=== PATIENT | female | born 1970 | race Caucasian/White ===

== ENCOUNTER 2019-01-24 07:00 | Outpatient (CLI) | payer OTHER, SELFPAY ==
--- NOTE | 2019-01-24 10:39 | DI.MAMMO_ITS ---
SYMPTOMS/DIAGNOSIS: SCREENING, PREVENTATIVE CARE, Z00.00 MAMMOGRAM: Mammograms were interpreted according to the usual protocol including computer analysis with CAD system, tomosynthesis and C view imaging. Comparison is made with 2012. The breasts are composed of heterogeneously dense fibroglandular tissue, breast Category C. No suspicious masses or suspicious microcalcifications are seen. There has been no significant change. IMPRESSION: Category I, negative mammogram. Yearly screening mammography is recommended. [facility] ASSESSMENT OF FINDINGS: Negative. Category 1. Patient will receive a letter notifying them of these results. Bi-RADS category C. The breasts are heterogeneously dense, which may obscure small masses.
== END 2019-01-24 07:20 ==
PROVIDERS: PCP Family Medicine; Visit Provider Family Medicine
DX: Z00.00 Encounter for general adult medical examination without abnormal findings (principal); Z12.31 Encounter for screening mammogram for malignant neoplasm of breast
CPT/HCPCS: 77063; 77067

== ENCOUNTER 2019-01-27 15:44 | Outpatient (CLI) | payer OTHER, SELFPAY ==
[2019-01-27 17:03] LABS: TSH (W/Ref FT4) 5.06 uIU/mL (0.358-3.74)
== END 2019-01-27 16:04 ==
PROVIDERS: PCP Family Medicine; Visit Provider Family Medicine
DX: E03.9 Hypothyroidism, unspecified (principal)
CPT/HCPCS: 36415; 84439; 84443

== ENCOUNTER 2019-01-31 12:30 | Outpatient (CLI) | payer OTHER, SELFPAY ==
[2019-01-31 21:12] LABS: Estradiol 47 pg/ml
[2019-02-03 10:18] LABS: FSH 5.1 mIU/ml; LH 1.7 mIU/ml; Prolactin 5.6 ng/ml
[2019-02-04 15:20] LABS: Testosterone, Free 0.21 ng/dL (0.06-0.95); Testosterone, Total 19 ng/dL (8-60)
== END 2019-01-31 12:50 ==
PROVIDERS: PCP Family Medicine; Visit Provider Obstetrics & Gynecology
DX: N92.4 Excessive bleeding in the premenopausal period (principal); N92.6 Irregular menstruation, unspecified; N92.0 Excessive and frequent menstruation with regular cycle
CPT/HCPCS: 36415; 80048; 84402; 84403; 82670; 83001; 83002; 84146; 84443

== ENCOUNTER 2019-01-31 15:01 | Outpatient (REF) | payer OTHER, SELFPAY ==
--- NOTE | 2019-01-31 12:20 | PAPFT_PTH ---
PATIENT: Porsha Spencer LOC: [facility] U#:[id number] AGE/SX: 48/F ROOM: RE01/31/[address]: Amber Moraes MD : 1970 BED: DIS: 01/31/2019 SPEC #: [id number] RECD: 01/31/19 17:50 STATUS: CHUYITA RODRÍGUEZ #: [id number] ENRIQUE: 01/31/19 12:[address]: Amber Moraes DEPT: [facility], [facility] Cytology RECD BY: Yissel Albert ENTERED: 01/31/19 17:50 SP TYPE: PAPFT OTHR DR: Gilda Gibson Tissues: 1 - CX/ENDOCX FOR PAP SMEARS Procedures: PAP THIN PREP/UVM Screening HPV DNA PROBE Comments: [id number]
== END 2019-01-31 15:21 ==
LOC: LBN 15:01
PROVIDERS: PCP Family Medicine; Visit Provider Obstetrics & Gynecology
DX: Z12.4 Encounter for screening for malignant neoplasm of cervix (principal); Z11.51 Encounter for screening for human papillomavirus (HPV)
CPT/HCPCS: 88142; 87624

== ENCOUNTER 2019-04-03 01:22 | Outpatient (CLI) | payer OTHER, SELFPAY ==
--- NOTE | 2019-04-03 07:52 | DI.MRI_ITS ---
SYMPTOM/DIAGNOSIS: LT ARM PAIN, PARESTHESIA, NECK PAIN, RT ARM NUMBNESS, R20.2, M54.2 CERVICAL SPINE MRI: MRI examination of the cervical spine was performed according to the usual protocol. There appear to be a few small fatty rests of cervical and upper thoracic vertebrae. No other bony signal abnormality is seen. There is mild prominence of the disc osteophyte complex at multiple levels throughout the cervical region. No focal disc herniation is seen. Central spinal canal and neural foramina appear well maintained. Spinal cord is of normal diameter and shows normal signal throughout. CONCLUSION: Negative cervical spine MRI.
== END 2019-04-03 01:42 ==
PROVIDERS: PCP Family Medicine; Visit Provider Nurse Practitioner Adult Health
DX: M54.2 Cervicalgia (principal); R20.2 Paresthesia of skin; M79.602 Pain in left arm
CPT/HCPCS: 72141

== ENCOUNTER 2019-04-16 11:40 | Outpatient (CLI) | payer OTHER, SELFPAY ==
[2019-04-16 12:57] LABS: Anion Gap 10.9 mmol/L (3-11); BUN 18 mg/dL (7-18); CO2 26.1 mmol/L (21.0-32.0); CREATININE 0.81 mg/dL (0.55-1.02); Calcium 8.8 mg/dL (8.5-10.1); Chloride 102 mmol/L (98-107); Glucose 92 mg/dL (70-100); Potassium 3.9 mmol/L (3.5-5.1); Sodium 139 mmol/L (136-145); TSH (W/Ref FT4) 3.26 uIU/mL (0.358-3.74)
== END 2019-04-16 12:00 ==
PROVIDERS: PCP Family Medicine; Visit Provider Family Medicine
DX: E03.9 Hypothyroidism, unspecified (principal); R03.0 Elevated blood-pressure reading, without diagnosis of hypertension
CPT/HCPCS: 36415; 80048; 84443

== ENCOUNTER 2019-12-22 14:37 | Outpatient (CLI) | payer OTHER, SELFPAY ==
[2019-12-22 17:29] LABS: TSH (W/Ref FT4) 3.83 uIU/mL (0.36-3.74)
[2019-12-22 18:05] LABS: FREE T4 0.82 ng/dL (0.76-1.46)
== END 2019-12-22 14:57 ==
PROVIDERS: PCP Family Medicine; Visit Provider Family Medicine
DX: E03.9 Hypothyroidism, unspecified (principal)
CPT/HCPCS: 36415; 84439; 84443

== ENCOUNTER 2020-06-25 13:17 | Outpatient (REF) | payer OTHER, SELFPAY ==
[2020-06-25 20:02] LABS: FREE T4 0.81 ng/dL (0.76-1.46); TSH 0.07 uIU/mL (0.36-3.74)
[2020-06-27 17:34] LABS: T3, Total 130 ng/dL (97-169)
== END 2020-06-25 13:37 ==
LOC: NCHCN 13:17
PROVIDERS: PCP Family Medicine; Visit Provider Family Medicine
DX: E03.9 Hypothyroidism, unspecified (principal)
CPT/HCPCS: 84439; 84443; 84480

== ENCOUNTER 2021-03-02 16:02 | Outpatient (REF) | payer OTHER, SELFPAY ==
[2021-03-02 20:15] LABS: FREE T4 1.02 ng/dL (0.76-1.46)
== END 2021-03-02 16:03 | disposition home or self-care (01) ==
LOC: NCHCN 16:02
PROVIDERS: PCP Family Medicine; Visit Provider Family Medicine
DX: E03.9 Hypothyroidism, unspecified (principal)
CPT/HCPCS: 84439

== ENCOUNTER 2021-03-04 03:36 | Outpatient (CLI) | payer OTHER, SELFPAY ==
--- NOTE | 2021-03-04 | DI.MAMMO_ITS ---
EXAM: MG MAMMO SCREENING CLINICAL HISTORY: SCREENING, Z12.39 TECHNIQUE: Bilateral full field digital CC and MLO mammographic images were obtained with 3D tomosyn thesis and utilizing computer aided detection (CAD). COMPARISON: Available for comparison. FINDINGS: Masses/Architectural Distortion: None seen. Microcalcifications: No suspicious pleomorphic-type are seen. Skin Thickening/Nipple Retraction: None. IMPRESSION: 1. No significant interval change with no specific features of malignancy noted. 2. Unless there is more urgent need, screening mammography is recommended, as per [place] guidelines. BI-RADS Category 1 - Negative Breast Density - Category C - Heterogeneously dense Breast density category C or D implies that the patient has dense breast tissue. Dense breast tissue is very common and is not abnormal but dense breast tissue can make it harder to find cancer on a ma mmogram. Also, dense breast tissue may increase their breast cancer risk. This information about the result of the mammogram report was provided to the patient to raise their awareness. Use this report when you speak with the patient about their risks for breast cancer, which includes their family hist ory. At that time, you may recommend for more screening tests (Ultrasound or MRI) as they might be us eful based on their risk. A negative radiographic report should not delay biopsy if a dominant or clinically suspicious mass is present. Up to ten percent of cancers are not identified on mammography. A negative report may reinforce clinical impression. Adenosis and dense breasts may obscure an underlying neoplasm. False positive reports average 6 to 10%. Patient will receive a letter notifying them of these results.
== END 2021-03-04 03:56 ==
PROVIDERS: PCP Family Medicine; Visit Provider Family Medicine
DX: Z12.31 Encounter for screening mammogram for malignant neoplasm of breast (principal)
CPT/HCPCS: 77063; 77067

== ENCOUNTER 2021-08-04 13:51 | Outpatient (CLI) | payer OTHER, SELFPAY ==
--- NOTE | 2021-08-04 | DI.RAD_ITS ---
Exam(s) XR FINGER RT INDEX EXAM: XR FINGER RT INDEX CLINICAL HISTORY: FINGER PAIN M79.646. TECHNIQUE: 2D digital imaging was performed. COMPARISON: No exams were available for comparison FINDINGS: BONES: No acute fracture is present. No bony destructive lesion is seen. JOINTS: No dislocation present. SOFT TISSUE: Minimal soft tissue swelling PIP joint IMPRESSION: No evidence of acute fracture, dislocation, or subluxation. DATA REPOSITORY: RADIATION DOSE DELIVERED:
--- NOTE | 2021-08-04 | DI.RAD_ITS ---
Exam(s) XR FINGER RT MIDDLE EXAM: XR FINGER RT MIDDLE CLINICAL HISTORY: FINGER PAIN M79.646. TECHNIQUE: 2D digital imaging was performed. COMPARISON: No exams were available for comparison FINDINGS: BONES: No acute fracture is present. No bony destructive lesion is seen. JOINTS: No dislocation present. SOFT TISSUE: Normal. IMPRESSION: No evidence of acute fracture, dislocation, or subluxation. DATA REPOSITORY: RADIATION DOSE DELIVERED:
--- NOTE | 2021-08-04 17:55 | DI.VRAD_ITS ---
PROCEDURE INFORMATION: Exam: XR Right Finger(s) Exam date and time: 08/04/2021 4:45 PM Age: 51 years old Clinical indication: Injury or trauma; Fall; Crushing; Right; Index finger and middle finger; Injury date: 8 weeks ago; Injury details: Fell paddleboarding and crushed fingers between paddle and board; Patient HX: Finger pain TECHNIQUE: Imaging protocol: XR Right fingers. Views: Minimum 2 views. COMPARISON: No relevant prior studies available. FINDINGS: Bones/joints: Normal. Soft tissues: Minimal soft tissue swelling ventral aspect PIP joint. IMPRESSION: Minimal soft tissue swelling ventral aspect of the PIP joint. Dictated and Authenticated by: Delores Bob MD. Ordering:KARAN Pierre MD
--- NOTE | 2021-08-04 17:56 | DI.VRAD_ITS ---
PROCEDURE INFORMATION: Exam: XR Right Finger(s) Exam date and time: 08/04/2021 4:45 PM Age: 51 years old Clinical indication: Injury or trauma; Fall; Blunt trauma (contusions or hematomas); Right; Index finger and middle finger; Injury date: 8 weeks ago; Injury details: Fell paddleboarding and crushed fingers between paddle and board; Patient HX: Finger pain TECHNIQUE: Imaging protocol: XR Right fingers. Views: Minimum 2 views. COMPARISON: CR XR FINGER RT INDEX 08/04/2021 5:07 PM FINDINGS: Bones/joints: Normal. Soft tissues: Normal. IMPRESSION: Unremarkable exam. Dictated and Authenticated by: Delores Bob MD. Ordering:KARAN Pierre MD
== END 2021-08-04 14:11 ==
PROVIDERS: PCP Family Medicine; Visit Provider Physician Assistant Medical
DX: M79.644 Pain in right finger(s) (principal)
CPT/HCPCS: 73140

== ENCOUNTER 2021-09-20 18:44 | Outpatient (CLI) | payer OTHER, SELFPAY ==
--- NOTE | 2021-09-20 15:00 | DI.RAD_ITS ---
Exam(s) XR WRIST LT COMPLETE EXAM: XR WRIST LT COMPLETE CLINICAL HISTORY: LT THUMB RADIAL MCP PAIN X 4 MONTHS. TECHNIQUE: 2D digital imaging was performed. COMPARISON: No exams were available for comparison FINDINGS: BONES: No acute fracture is present. No bony destructive lesion is seen. JOINTS: The carpal bones are normally aligned. No significant degenerative changes. SOFT TISSUE: Normal. No soft tissue calcifications. IMPRESSION: Unremarkable radiographs of the left wrist. DATA REPOSITORY: RADIATION DOSE DELIVERED:
--- NOTE | 2021-09-20 15:00 | DI.RAD_ITS ---
Exam(s) XR FINGER RT INDEX EXAM: XR FINGER RT INDEX CLINICAL HISTORY: RT INDEX FINGER SPRAIN. TECHNIQUE: 2D digital imaging was performed. COMPARISON: CR,XR XR FINGER RT MIDDLE from 08/04/2021 FINDINGS: BONES: No acute fracture is present. No bony destructive lesion is seen. JOINTS: No dislocation present. SOFT TISSUE: Normal. IMPRESSION: No evidence of acute fracture, dislocation, or subluxation. DATA REPOSITORY: RADIATION DOSE DELIVERED:
== END 2021-09-20 19:04 ==
PROVIDERS: PCP Family Medicine; Visit Provider Chiropractor Orthopedic
DX: M79.645 Pain in left finger(s) (principal); M79.644 Pain in right finger(s); M25.532 Pain in left wrist; M25.542 Pain in joints of left hand
CPT/HCPCS: 73110; 73140

== ENCOUNTER 2022-04-10 19:59 | Outpatient (REF) | payer OTHER, SELFPAY ==
[2022-04-10 18:42] LABS: Calculated LDL 92 mg/dL (<100); Cholesterol 167 mg/dL (<200); HDL Cholesterol 68 mg/dL (40-60); TSH 0.01 uIU/mL (0.36-3.74); Triglyceride 35 mg/dL (<150)
[2022-04-10 19:14] LABS: FREE T4 1.04 ng/dL (0.76-1.46)
[2022-04-12 09:47] LABS: Hepatitis C Ab w Rflx HCV PCR Negative (Negative)
[2022-04-12 10:03] LABS: HIV-1/2 Ag & Ab Screen Negative (Negative)
== END 2022-04-10 20:00 | disposition home or self-care (01) ==
LOC: NCHCN 19:59
PROVIDERS: PCP Family Medicine; Visit Provider Family Medicine
DX: R19.7 Diarrhea, unspecified (principal); Z13.220 Encounter for screening for lipoid disorders; Z11.4 Encounter for screening for human immunodeficiency virus [HIV]; Z11.59 Encounter for screening for other viral diseases
CPT/HCPCS: 80061; 86803; 87389; 84439; 84443

== ENCOUNTER 2023-02-06 02:39 | Outpatient (CLI) | payer OTHER, SELFPAY ==
[2023-02-06 13:35] LABS: HCT 41.4 % (36.0-46.0); HGB 13.6 g/dL (11.2-15.7); MCH 28.2 pg (27.0-33.0); MCHC 32.9 % (32.0-36.0); MCV 86 fL (80-95); MPV 7.9 fL (8.0-11.0); Platelet Count 322 10^3/uL (130-400); RBC 4.82 10^6/uL (3.93-5.22); RDW 12.5 % (11.7-14.6); RDW-SD 38.9 fL; WBC 5.82 10^3/uL (4.4-10.8)
[2023-02-06 14:21] LABS: ALT 26 U/L (14-59); AST 19 U/L (15-37); Albumin 3.8 g/dL (3.4-5.0); Alkaline Phosphatase 69 U/L (46-116); Anion Gap 6.9 mmol/L (3-11); BUN 13 mg/dL (7-18); Bilirubin, Total 0.8 mg/dL (0.2-1.0); CO2 30.1 mmol/L (21.0-32.0); CREATININE 0.7 mg/dL (0.55-1.02); Calcium 9.1 mg/dL (8.5-10.1); Chloride 105 mmol/L (98-107); Glucose 103 mg/dL (74-106); Potassium 3.7 mmol/L (3.5-5.1); Sodium 142 mmol/L (136-145); Total Protein 7.1 g/dL (6.4-8.2); Vitamin B12 455 pg/mL (193-986)
[2023-02-06 14:22] LABS: Folate > 20.0 ng/mL (8.6-20.0); TSH (W/Ref FT4) < 0.01 uIU/mL (0.36-3.74)
[2023-02-06 14:41] LABS: C-Reactive Protein 0.09 mg/dL (0.0-0.3); FREE T4 1.13 ng/dL (0.76-1.46); NT-proBNP 27 pg/mL (<300)
== END 2023-02-06 02:40 | disposition home or self-care (01) ==
PROVIDERS: PCP Family Medicine; Visit Provider Family Medicine
DX: R20.2 Paresthesia of skin (principal); R60.0 Localized edema
CPT/HCPCS: 36415; 80053; 85027; 82607; 82746; 83880; 84439; 84443; 86140

== ENCOUNTER 2023-03-20 09:33 | Outpatient (CLI) | payer OTHER, SELFPAY | END 2023-03-20 09:34 | disposition home or self-care (01) | PROVIDERS: PCP Family Medicine; Visit Provider Family Medicine | DX: R00.2 Palpitations (principal) | CPT/HCPCS: 93246 ==

== ENCOUNTER 2023-03-26 01:11 | Outpatient (CLI) | payer OTHER, SELFPAY ==
--- NOTE | 2023-03-26 | DI.US_ITS ---
APPROVED REPORT EXAM: Comprehensive 2D, Doppler, and color-flow Echocardiogram Patient Location: Out-Patient Technology Auditor: Hina Rubio RDCS (AE) Indications: Exertional chest pain, Dyspnea on exertion Other Information Study Quality: Good Conclusion Normal left ventricular wall thickness and chamber size. Ejection fraction is 60 to 65%. Wall motio n is normal Normal right ventricular size and systolic function Both atria are normal in size There is no structural or hemodynamically significant valvular disease Estimated right ventricular systolic pressure is 16 mmHg Wall motion Left Ventricle The left ventricle is normal size. The left ventricular systolic function is normal. The left ventric ular ejection fraction is within the normal range. There is normal left ventricular wall thickness. T here is normal LV segmental wall motion. There is no ventricular septal defect visualized. LVEF is 60 -65%. Right Ventricle The right ventricle is normal size. The right ventricular systolic function is normal. The RVSP is 15 .8 mmHg. Atria The left atrium size is normal. The right atrium size is normal. The interatrial septum is intact wit h no evidence for an atrial septal defect. Aortic Valve The aortic valve is normal in structure. Aortic valve is trileaflet. There is no aortic valvular sten osis. No aortic regurgitation is present. Mitral Valve The mitral valve is normal in structure. No evidence of mitral valve stenosis. Trace mitral regurgita tion. Tricuspid Valve The tricuspid valve is normal in structure. There is no tricuspid valve stenosis. Trace tricuspid reg urgitation. Pulmonic Valve The pulmonary valve is normal in structure. There is no pulmonic valvular stenosis. Trace pulmonic re gurgitation. Great Vessels The aortic root is normal in size. The ascending aorta is normal in size. Aortic arch is normal in ca liber. IVC is normal in size and collapses >50% with inspiration. Pericardium There is no pericardial effusion. 2D Dimensions IVSD d PLAX 0.87 cm F: 0.6-1.0 LV Vol A2C d MOD 78.4 mL LVPW d PLAX 0.89 cm F: 0.6 - 1.0 LV Vol A4C d MOD 76.9 mL LVID d PLAX 4.53 cm F: 3.8 - 5.2 LA vol/ BSA A2C s A-L 16.0 mL/m2 LVDs 3.20 cm F: 2.2 - 3.5 LA vol/ BSA A4C s A-L 24.7 mL/m2 Ao Root d 2.90 cm F: 2.7 - 3.3 LA Vol/ BSA Biplane s A-L 23.4 mL/m2 RA Area A4C 9.13 cm2 LA Area A4C s MOD 16.49 cm2 RA Vol/ BSA A4C s A-L 11.1 mL/m2 LA Area A2C s MOD 11.24 cm2 Ao Asc Diam d 3.20 cm F: 2.3 - 3.1 LV EF A4C MOD 66.3 % LV EF Teichholz 56.2 % LV EF A2C MOD 60.1 % LVEF (Shea's) 62.55 % F: 54 - 74 LV EF Biplane MOD 62.6 % LV Volume 61.99 mL F: 46 - 106 SV 49.15 mL LV Volume Index 35.83 mL/m2 F: 29 - 61 SV Index 28.40 mL/m2 LV Vol Biplane MOD 78.6 mL FS 29.25 % M-Mode TAPSE 2.44 cm (M/F) >1.7 LV Diastology MV E' medial 0.077 (>0.07 m/s) E/A Ratio 1.1 LV E/e MED 7.55 (<14) MV E Vmax 0.58 (0.4-1.3 m/s) MV E' lateral 0.111 (>0.1 m/s) MV A Vmax 0.55 (0.4-1.3 m/s) LV E/e LAT 5.25 (<14) MV E/A Ratio 1.01 MV E/E' medial 7.60 MV E/E' lateral 5.25 Aortic Valve LVOT Area 2.98 cm2 AoV Area Vmax 2.32 cm2 LVOT Vmax 1.09 m/s AoV Area/ BSA (Vmax) 1.34 cm2/m2 LVOT Mean Adonay. 0.73 m/s CRISTIN Mean Adonay. 2.28 cm2 LVOT Peak Grad 4.8 mmHg CRISTIN Mean Adonay. Index 1.32 cm2/m2 LVOT Mean Grad 2.5 mmHg LVOT VTI 0.214 m LVOT Diam s 1.90 cm AoV Vmax 1.40 m/s Velocity Ratio 0.78 AoV Mean Adonay. 0.95 m/s AoV Peak Grad 7.9 mmHg LVOT SV 63.61 mL AoV Mean Grad 4.1 mmHg AoV VTI 0.254 m AoV Area VTI 2.50 cm2 AoV Area/ BSA (VTI) 1.45 cm/m2 Mitral Valve MV DT 178 (160-240 msec) MV PHT 52 msec MV Area PHT 4.26 cm2 MV VTI 0.204 m MV Area VTI 3.12 (4.0-6.0 cm2) Pulmonary Valve PV Vmax 0.91 (0.5-1.5 m/s) RVOT Peak Gr. 2.49 mmHg PV Peak Grad 3.3 mmHg RVOT Mean Gr. 1.30 mmHg PV Mean Grad 1.7 mmHg RVOT VTI 0.169 m PV VTI 0.194 m RVOT Vmax 0.79 m/s Tricuspid Valve TR Peak Grad 12.8 mmHg TR Vmax 1.79 m/s RA Pressure 3.00 mmHg RVSP (TR) 15.8 mmHg
--- NOTE | 2023-03-26 09:15 | DI.NM_ITS ---
APPROVED REPORT Exam: Exercise Treadmill Patient Location: Out-Patient Room/Bed: Stress Nurse: aMt Rowell RN Ordering Provider:FALLON DUVAL, Contact Number: BMI: 24.95 Baseline Rhythm: Sinus Rhythm Indications: Exertional chest pain Medical History Medical History: No history of CAD Cardiac Medications: none Allergies: Levaquin Cardiac Risk Factors: none Previous Cardiac Procedures: None Pretest Chest Pain Characteristics: No chest pain Exercise History: Physically active Physical Disabilities: none Lung Sounds: Clear to auscultation Heart Sounds: Regular Stress Test Details Test: Exercise stress testing was performed using a Ze protocol. Nuclear Acquisition: Rest Tc-99m/Stress Tc-99m 1 day Rest Isotope: Tc-99m Sestamibi. Dose: 10 Date: 03/26/2023 Injection Time: 10:00 Stress Isotope: Tc-99m Sestamibi. Dose: 31 Date: 03/26/2023 Injection Time: 12:02 HR Resting HR Supine: 70 bpm Max Heart Rate (APMHR): 169.128163 bpm Resting HR Standin bpm Target HR (85% APMHR): 143.496071 bpm Max HR Achieved: 194 bpm % of APMHR: 114.79 Recovery HR: 100 bpm HR response to stress: Normal HR response to stress BP Resting BP Supine: 138/90 mmHg Resting BP Standin/82 mmHg Max BP: 174/52 mmHg Recovery BP: 144/80 mmHg BP response to stress: Normal blood pressure response to stress. ECG Resting ECG: Sinus Rhythm Ectopy: none Stress ECG: Sinus Tachycardia ST Change: No significant ST segment changes noted Arrhythmia: none Recovery ECG: Sinus Rhythm Recovery ST Change: No significant ST segment changes noted Recovery Arrhythmia: none Clinical Reason for Termination: Fatigue, Target HR Achieved Stress Symptoms: General Fatigue, Left side chest pain, c/o Needle like sensation center of chest, lightheadedness. Exercise duration: 12 min57 sec Highest Stage Reached: Stage 5: 5.0 mph at 18% grade. Exercise capacity: 14.86 METs Angina Score: None Mccoy Treadmill Score: 8.7 Rate Pressure Product: 23814 Stress ECG Conclusion 1. Resting electrocardiogram showed voltage for left ventricular hypertrophy 2. Patient exercised on the Ze protocol and completed a workload of 14.86 METS 3. Normal heart rate and blood pressure response to exercise. Patient achieved greater than 100% of predicted heart rate for age 4. There was no electrocardiographic evidence of myocardial ischemia 5. There were no dysrhythmias 6. See MPI report Mccoy Treadmill Score is 8.7 which is Low risk. Stress Test Summary STAGE Time (mins) Speed (mph) Grade (%) HR BP SpO2 SYMPTOMS METS Supine 70 138/90 98 None Standing 83 122/82 96 none 1 3 1.7 10 103 128/74 97 none 4.5 2 6 2.5 12 145 144/70 95 none 7 3 9 3.4 14 174 96 none 10 4 12 4.2 16 182 96 Left side mild chest pressure 13 5 15 5.0 18 194 96 15 1 min recovery 167 174/52 96 Lightheaded. States she feels needle like sensation center of est. 3 min recovery 112 144/68 97 none 6 min recovery 111 144/80 97 none 9 min recovery 100 none MPI Conclusion Myocardial perfusion is normal. There is no ischemia or evidence of prior infarction EF is 66%, wall motion is normal Radiologist Interpretation Radiologist Interpretation by: Jp Tidwell MD Interpretation Date/Time: 03/26/2023 17:03:04
== END 2023-03-26 01:31 ==
PROVIDERS: PCP Family Medicine; Visit Provider Family Medicine
DX: R07.9 Chest pain, unspecified (principal); R06.00 Dyspnea, unspecified
CPT/HCPCS: 78452; 93017; 93306

== ENCOUNTER 2023-04-02 01:20 | Outpatient (CLI) | payer OTHER, SELFPAY ==
--- NOTE | 2023-04-02 08:15 | DI.MAMMO_ITS ---
Exam(s) MAMMO SCREENING EXAM: MAMMO SCREENING CLINICAL HISTORY: SCREENING, Z12.39 TECHNIQUE: Mammograms were interpreted according to the usual protocol including computer analysis w [employer] CAD system, tomosynthesis and C-view imaging. COMPARISON: 2018 and 2020 FINDINGS: The breasts are composed of scattered fibroglandular densities, Breast Density category B. No suspicious masses or suspicious microcalcifications are seen. No skin thickening or abnormal axillary lymph nodes are seen. There has been no significant change from prior exams. IMPRESSION: BI-RADS Category 1, Negative mammogram Yearly screening mammography is recommended. Breast Density - Category B, scattered fibroglandular densities. A negative radiographic report should not delay biopsy if a dominant or clinically suspicious mass is present. Up to ten percent of cancers are not identified on mammography. A negative report may reinforce clinical impression. Adenosis and dense breasts may obscure an underlying neoplasm. False positive reports average 6 to 10%. Patient will receive a letter notifying them of these results.
== END 2023-04-02 01:40 ==
LOC: DI 01:21
PROVIDERS: PCP Family Medicine; Visit Provider Family Medicine
DX: Z12.31 Encounter for screening mammogram for malignant neoplasm of breast (principal)
CPT/HCPCS: 77063; 77067

== ENCOUNTER 2023-05-01 09:01 | Outpatient (CLI) | payer OTHER, SELFPAY ==
--- NOTE | 2023-05-01 10:23 | W.CARDEVENT ---
Date of service: 05/01/23 Time of Service: 10:23 Cardiac Event Recorder Referring Provider:: Gilda Gibson Indications:: Palpitations Cardiac Event Note: This is a 14-day cardiac event monitor ordered for palpitations. Recording lasted 11 days and 5 hours Rhythm throughout was sinus with an average heart rate of 82. Minimum was 45, maximum 158 There were rare isolated atrial and ventricular ectopic beats A total of 4 self-limited atrial runs occurred. The longest of these was 9 beats in duration Patient symptoms were reported all of which corresponded to sinus rhythm with heart rates ranging from 60-88.
== END 2023-05-01 09:02 | disposition home or self-care (01) ==
LOC: CARDOPNVT 09:01
PROVIDERS: PCP Family Medicine; Visit Provider Internal Medicine Cardiovascular Disease
DX: R00.2 Palpitations (principal); I49.1 Atrial premature depolarization

== ENCOUNTER 2023-05-03 15:50 | Outpatient (CLI) | payer OTHER, SELFPAY ==
[2023-05-03 11:43] LABS: FREE T4 1.35 ng/dL (0.76-1.46); TSH 0.02 uIU/mL (0.36-3.74)
== END 2023-05-03 15:51 | disposition home or self-care (01) ==
LOC: LBO 15:55
PROVIDERS: PCP Family Medicine; Visit Provider Student in an Organized Health Care Education/Training Program
DX: E03.9 Hypothyroidism, unspecified (principal)
CPT/HCPCS: 36415; 84439; 84443

== ENCOUNTER 2024-03-28 16:13 | Outpatient (REF) | payer BC, OTHER, SELFPAY ==
--- NOTE | 2024-03-28 14:45 | PAPFT_PTH ---
PATIENT: Porsha Spencer LOC: [facility] U#:[id number] AGE/SX: 54/F ROOM: RE03/28/[address]: Binta Moya MD : 1970 BED: DIS: 03/28/2024 SPEC #: [id number] RECD: 03/28/24 17:31 STATUS: CHUYITA ANNE #: [id number] ENRIQUE: 03/28/24 14:[address]: Binta Moya DEPT: [facility] Cytology RECD BY: Yissel Albert ENTERED: 03/28/24 17:31 SP TYPE: PAPFT OTHR DR: Gilda Gibson Tissues: 1 - CX/ENDOCX FOR PAP SMEARS Procedures: PAP THIN PREP/UVM Screening HPV DNA PROBE Comments: [id number]
== END 2024-03-28 16:14 | disposition home or self-care (01) ==
LOC: LBN 16:13
PROVIDERS: PCP Family Medicine; Visit Provider Obstetrics & Gynecology
DX: Z01.419 Encounter for gynecological examination (general) (routine) without abnormal findings (principal); N92.4 Excessive bleeding in the premenopausal period; R10.2 Pelvic and perineal pain
CPT/HCPCS: 88142; 87624

== ENCOUNTER 2024-04-03 01:11 | Outpatient (CLI) | payer BC, SELFPAY ==
[2024-04-03 16:51] LABS: FREE T4 1.53 ng/dL (0.76-1.46); TSH 0.49 uIU/Ml (0.36-3.74)
== END 2024-04-03 01:12 | disposition home or self-care (01) ==
PROVIDERS: PCP Family Medicine; Visit Provider Student in an Organized Health Care Education/Training Program
DX: E03.9 Hypothyroidism, unspecified (principal)
CPT/HCPCS: 36415; 84439; 84443

== ENCOUNTER 2025-01-13 16:09 | Outpatient (REF) | payer BC, SELFPAY ==
[2025-01-13 18:40] LABS: TSH (W/Ref FT4) 1.14 uIU/mL (0.36-3.74)
== END 2025-01-13 16:10 | disposition home or self-care (01) ==
LOC: NCHCN 16:09
PROVIDERS: PCP Family Medicine; Visit Provider Nurse Practitioner Family
DX: Z00.00 Encounter for general adult medical examination without abnormal findings (principal)
CPT/HCPCS: 84443

== ENCOUNTER 2025-01-20 01:49 | Outpatient (CLI) | payer BC, SELFPAY ==
--- NOTE | 2025-01-20 | DI.MAMMO_ITS ---
Exam(s) MAMMO SCREENING EXAM: MAMMO SCREENING CLINICAL HISTORY: SCREENING, Z12.31 TECHNIQUE: Mammograms were interpreted according to the usual protocol including computer analysis w [employer] CAD system, tomosynthesis and C-view imaging. COMPARISON: 2018 through 2022 FINDINGS: The breasts are composed of scattered fibroglandular densities, Breast Density category B. No suspicious masses or suspicious microcalcifications are seen. No skin thickening or abnormal axillary lymph nodes are seen. There has been no significant change from prior exams. IMPRESSION: BI-RADS Category 1, Negative mammogram Yearly screening mammography is recommended. Breast Density - Category B, scattered fibroglandular densities. A negative radiographic report should not delay biopsy if a dominant or clinically suspicious mass is present. Up to ten percent of cancers are not identified on mammography. A negative report may reinforce clinical impression. Adenosis and dense breasts may obscure an underlying neoplasm. False positive reports average 6 to 10%. Patient will receive a letter notifying them of these results.
== END 2025-01-20 02:09 ==
LOC: DI 01:49
PROVIDERS: PCP Family Medicine; Visit Provider Nurse Practitioner Family
DX: Z12.31 Encounter for screening mammogram for malignant neoplasm of breast (principal); R92.323 Mammographic fibroglandular density, bilateral breasts
CPT/HCPCS: 77063; 77067